=== PATIENT | male | born 1985 | race Caucasian/White ===

== ENCOUNTER → 2021-04-20 08:52 | Outpatient (BNVA) | payer OTHER, SELFPAY | PROVIDERS: Family Provider Nurse Practitioner; PCP Nurse Practitioner; Visit Provider Nurse Practitioner Family | DX: M79.641 Pain in right hand (principal); R20.0 Anesthesia of skin | CPT/HCPCS: 73130 ==

== ENCOUNTER → 2021-04-26 08:28 | Outpatient (BNVA) | payer OTHER, SELFPAY | PROVIDERS: Family Provider Nurse Practitioner; PCP Nurse Practitioner; Referring Provider Nurse Practitioner Family; Visit Provider Specialist | DX: G56.21 Lesion of ulnar nerve, right upper limb (principal); R20.0 Anesthesia of skin; R20.2 Paresthesia of skin; F17.200 Nicotine dependence, unspecified, uncomplicated | CPT/HCPCS: 95908 ==

== ENCOUNTER 2021-05-16 06:00 | Outpatient (RCR) | payer OTHER, SELFPAY | END 2021-06-04 23:59 | disposition home or self-care (01) | LOC: TOT 06:00 | PROVIDERS: PCP Nurse Practitioner; Referring Provider Nurse Practitioner Family; Visit Provider Nurse Practitioner Family | DX: G56.21 Lesion of ulnar nerve, right upper limb (principal); M79.641 Pain in right hand; R20.0 Anesthesia of skin | CPT/HCPCS: 97110; 97166 ==

== ENCOUNTER → 2021-05-29 13:15 | Outpatient (BNVA) | payer OTHER, BC, SELFPAY | PROVIDERS: PCP Nurse Practitioner; Referring Provider Nurse Practitioner Family; Visit Provider Specialist | DX: G56.21 Lesion of ulnar nerve, right upper limb (principal) | CPT/HCPCS: 73110 ==

== ENCOUNTER 2021-06-05 06:00 | Outpatient (RCR) | payer OTHER, SELFPAY | END 2021-07-04 23:59 | disposition home or self-care (01) | LOC: TOT 06:00 | PROVIDERS: PCP Nurse Practitioner; Referring Provider Nurse Practitioner Family; Visit Provider Nurse Practitioner Family | DX: G56.21 Lesion of ulnar nerve, right upper limb (principal); M79.641 Pain in right hand; R20.0 Anesthesia of skin | CPT/HCPCS: 97110 ==

== ENCOUNTER 2021-07-17 05:23 | Outpatient (RCR) | payer OTHER, SELFPAY | END 2021-08-04 23:59 | disposition home or self-care (01) | LOC: TOT 05:23 | PROVIDERS: PCP Nurse Practitioner; Referring Provider Nurse Practitioner Family; Visit Provider Nurse Practitioner Family | DX: G56.21 Lesion of ulnar nerve, right upper limb (principal); M79.641 Pain in right hand; R20.0 Anesthesia of skin | CPT/HCPCS: 97110; 97166; L3908 ==